=== PATIENT | male | born 1995 | race Caucasian/White ===

== ENCOUNTER 2016-11-03 11:17 | Emergency (ER) | payer BC ==
[~2016-11-03] VITALS: Ht 190.5 cm; Wt 86.4 kg
[2016-11-03 11:20] VITALS: BP 135/80; TEMP 99.1
[2016-11-03] MEDS ORDERED: CEPHALEXIN500 M1 PO (12:55)
[2016-11-03 13:08] VITALS: PULSE 98
== END 2016-11-03 13:20 | disposition home or self-care (01) ==
LOC: COL.ER 11:17
DX: S01.121A Laceration with foreign body of right eyelid and periocular area, initial encounter (principal); S00.83XA Contusion of other part of head, initial encounter; Y04.0XXA Assault by unarmed brawl or fight, initial encounter

== ENCOUNTER 2016-11-08 09:16 | Emergency (ER) | payer BC ==
[~2016-11-08 09:16] MED LIST: CEPHALEXIN500 M1 PO
[2016-11-08 09:20] VITALS: BP 127/72; PULSE 79
== END 2016-11-08 09:50 | disposition home or self-care (01) ==
LOC: COL.ER 09:16
DX: Z48.02 Encounter for removal of sutures (principal)